=== PATIENT | female | born 1945 | race Caucasian/White ===

== ENCOUNTER 2018-11-04 15:01 | Outpatient (CLI) | payer MEDICARE ==
--- NOTE | 2018-11-04 17:20 | MRI ---
MRI RIGHT KNEE WITHOUT CONTRAST: INDICATIONS: History of right knee pain after a yoga injury one week ago. The patient reportedly has pain and loc roya of the right knee. FINDINGS: There is a mild-sized joint effusion. There is a mild-sized medial suprapatellar synovial plica. Th ere is a tiny Lima's cyst. There is diffuse mucoid degeneration of the ACL. The PCL, MCL, and LCLC are intact. The extensor me chanism is intact. There is severe thinning of the articular cartilage involving the lateral patellar facet and the lowe r aspect of the median patellar ridge. There is moderate diffuse chondrosis involving the femoral tr ochlea. There is mild diffuse thinning involving the medial femoral and tibial joint compartments wi th small marginal osteophytes affecting all major compartments of the right knee. There is a horizontally-oriented tear involving the anterior junction, body, and posterior junction o f the lateral meniscus. The medial meniscus is intact. Bone marrow signal intensity appears within normal limits. IMPRESSION: 1. Mild osteoarthrosis of the right knee. 2. Lateral meniscal tear. POS: [facility]
== END 2018-11-04 15:02 | disposition home or self-care (01) ==
LOC: SCSMRI 15:01
PROVIDERS: ATTEND Orthopaedic Surgery
DX: S83.281A Other tear of lateral meniscus, current injury, right knee, initial encounter (principal); M17.11 Unilateral primary osteoarthritis, right knee

== ENCOUNTER 2020-12-01 11:34 | Outpatient (CLI) | payer MEDICARE, OTHER | END 2020-12-01 11:35 | disposition home or self-care (01) | LOC: BICRAD 11:34 | PROVIDERS: ATTEND Internal Medicine Gastroenterology | DX: R10.31 Right lower quadrant pain (principal); K21.9 Gastro-esophageal reflux disease without esophagitis; K59.09 Other constipation; K92.1 Melena; R15.9 Full incontinence of feces | CPT/HCPCS: 74018 ==

== ENCOUNTER 2022-03-06 18:29 | Observation (INO) | payer MEDICARE, OTHER ==
[2022-03-06 18:59] LABS: #Eosinphils 0.4 thou/uL (0.0-0.7); #Lymphocytes 1.7 thou/uL (1.20-3.40); #Monocytes 0.4 thou/uL (0.11-0.59); #Neutrophils 3.4 thou/uL (1.40-6.50); %Basophils 0.8 % (0.0-1.0); %Eosinophils 6.1 % (0.0-10.0); %Lymphocytes 29.6 % (21.0-51.0); %Neutrophils 57.5 % (42.0-75.0); Hemoglobin 14.3 g/dL (12.0-16.0); Mean Corpuscular HGB CONC 33.6 g/dL (32.0-36.0); Mean Corpuscular Volume 98.3 fl (78.0-98.0); Mean Platelet Volume 10.3 fL (7.4-10.4); Platelet Count 197 10x3/uL (130-400); RBC Distribution Width 11.2 % (11.5-14.5); Red Blood Cell (RBC) Count 4.33 mill/uL (4.20-5.40); White Blood Cell (WBC) Count 5.9 10x3/uL (4.8-10.8)
[2022-03-06 19:25] LABS: ALT (SGPT) 28 U/L (8-55); AST (SGOT) 30 U/L (5-34); Albumin 4.4 g/dL (3.4-4.8); Alkaline Phosphatase 87 U/L (40-110); Anion Gap 12 mmol/L (10-20); BUN (Urea Nitrogen) 13 mg/dL (9.8-20.1); Bilirubin, Total 0.4 mg/dL (0.2-1.2); Calc. Creatinine Clearance 0 mL/min (70-130); Calcium 9.2 mg/dL (7.8-10.44); Carbon Dioxide 27 mmol/L (23-31); Chloride 107 mmol/L (98-107); Estimated GFR 72; Globulin 2.4 g/dL (2.4-3.5); Glucose 95 mg/dL (83-110); Lipase 23 U/L (8-78); Potassium 4.1 mmol/L (3.5-5.1); Protein, Total 6.8 g/dL (5.8-8.1); Sodium 142 mmol/L (136-145)
[2022-03-06] MEDS ORDERED: Aspirin Chewable 81 MG TAB ONE (23:14)
[2022-03-07 03:03] LABS: Troponin I Less than 0.010 ng/mL (< 0.028)
[2022-03-07] MEDS ORDERED: Acetaminophen 325 MG TAB PO PRN (06:04)
[2022-03-07] MEDS ORDERED: Ondansetron PF 4 MG/2 ML Vial IVP PRN (06:04)
[2022-03-07 07:11] LABS: #Eosinphils 0.4 thou/uL (0.0-0.7); #Lymphocytes 1.5 thou/uL (1.20-3.40); #Monocytes 0.4 thou/uL (0.11-0.59); #Neutrophils 2.6 thou/uL (1.40-6.50); %Basophils 0.8 % (0.0-1.0); %Eosinophils 7.4 % (0.0-10.0); %Lymphocytes 30.4 % (21.0-51.0); %Monocytes 8.1 % (0.0-10.0); %Neutrophils 53.3 % (42.0-75.0); Hemoglobin 13.2 g/dL (12.0-16.0); Mean Corpuscular HGB CONC 33.7 g/dL (32.0-36.0); Mean Corpuscular Hemoglobin 32.9 pg (27.0-31.0); Mean Corpuscular Volume 97.7 fl (78.0-98.0); Mean Platelet Volume 10.1 fL (7.4-10.4); Platelet Count 169 10x3/uL (130-400); RBC Distribution Width 11.1 % (11.5-14.5); Red Blood Cell (RBC) Count 4.01 mill/uL (4.20-5.40); White Blood Cell (WBC) Count 4.8 10x3/uL (4.8-10.8)
[2022-03-07 07:38] LABS: Anion Gap 13 mmol/L (10-20); BUN (Urea Nitrogen) 12 mg/dL (9.8-20.1); Calc. Creatinine Clearance 0 mL/min (70-130); Calcium 8.6 mg/dL (7.8-10.44); Carbon Dioxide 23 mmol/L (23-31); Chloride 109 mmol/L (98-107); Estimated GFR 79; Glucose 94 mg/dL (83-110); Potassium 3.7 mmol/L (3.5-5.1); Sodium 141 mmol/L (136-145)
[2022-03-07 08:29] LABS: Cardiac Risk 2.7 (Less than 4.5); Cholesterol 211 mg/dl (< 200 Desired); HDL Cholesterol 77 mg/dL (>60 Neg Risk); LDL Cholesterol, Calculated 119 mg/dL; Magnesium 2.1 mg/dL (1.6-2.6); Triglycerides 75 mg/dL (Less than 150)
[2022-03-07] MEDS ORDERED: Enoxaparin Sodium 40 MG/0.4 ML SYRINGE SC SCH (09:00)
[2022-03-07] MEDS ORDERED: ADENOSINE 60 MG/20 ML VIAL ONE (10:52)
[2022-03-07 15:15] VITALS: BP 133/82; TEMP 98
== END 2022-03-07 15:25 | disposition home or self-care (01) ==
LOC: ERS 18:29 → ERHOLD 03-07 → 2SW 03-07 14:31
PROVIDERS: ADMIT Internal Medicine; ATTEND Internal Medicine
DX: R00.2 Palpitations (principal); R06.09 Other forms of dyspnea; F41.9 Anxiety disorder, unspecified; E78.2 Mixed hyperlipidemia; M19.90 Unspecified osteoarthritis, unspecified site; I77.811 Abdominal aortic ectasia; Z79.899 Other long term (current) drug therapy
CPT/HCPCS: 71045; 76775; 78452; 80048; 80061; 83690; 83735; 84484 ×2; 93005; 93017; 93971; A9500; G0378 ×2; 36415; 80053; 84443; 85025; J0153